=== PATIENT | male | born 2000 | race Caucasian/White ===

== ENCOUNTER 2020-06-12 12:12 | Emergency (ER) | payer MEDICAID ==
--- NOTE | 2020-06-12 12:51 | EDM.PDOC ---
ED HPI GENERAL MEDICAL PROBLEM - General Chief Complaint: Respiratory Problem Stated Complaint: SICK Time Seen by Provider: 06/12/20 12:14 - History of Present Illness INITIAL COMMENTS - FREE TEXT/NARRATIVE: History of present illness: [] Patient presents to the ED with his father for concerns over aspiration. About 11:00 he apparently vomited and father witnessed him aspirate. Since then he says he has been acting unusually and was concerned because in a previous episode of aspiration he was hospitalized for an extended period of time and extremely ill. Father is also concerned that he may have some constipation he has been having bowel movements but it has been diminished from his baseline and when he gets constipated he has increased episodes of vomiting. He is G-tube fed he is nonverbal he has fairly severe cerebral palsy prior history of intubation and tracheostomy after a prior aspiration incident. Review of systems: As per history of present illness and below otherwise all systems reviewed and negative. Past medical history: As per history of present illness and as reviewed below otherwise noncontributory. Surgical history: As per history of present illness and as reviewed below otherwise nonco ntributory. Social history: No reported history of drug or alcohol abuse. Family history: As per history of present illness and as reviewed below otherwise noncontributory. Physical exam: HEENT: Atraumatic, normocephalic, pupils reactive, negative for conjunctival pallor or scleral icterus, mucous membranes moist, throat clear, neck supple, nontender, trachea midline. Lungs: Rhonchi in the right lobe., breath sounds equal bilaterally, chest nontender. Heart: S1S2, regular, negative for clicks, rubs, or JVD. Tachycardic however the father states he is almost always in the 120s to 130s. At his baseline Abdomen: Soft, nondistended, nontender. Negative for masses or hepatosplenomegaly. Negative for costovertebral tenderness. Pelvis: Stable nontender. Genitourinary: Deferred. Rectal: Deferred. Extremities: Atraumatic, negative for cords or calf pain. Neurovascular unremarkable. Neuro: Awake, alert, oriented. Cranial nerves II through XII unremarkable. Cerebellum unremarkable. Motor and sensory unremarkable throughout. Exam nonfocal. Diagnostics: [] Therapeutics: [] Impression: Concerns for aspiration and constipation. [] Plan: We will start with a one-view portable chest and an upright abdomen. [] Definitive disposition and diagnosis as appropriate pending reevaluation and review of above. - Related Data Allergies Allergy/AdvReac Type Severity Reaction Status Date / Time No Known Allergies Allergy Verified 06/12/20 12:23 Home Meds: Home Meds PHENobarbitaL [PHENobarbital Elixir] 15 ml PO BID 06/12/20 [History] Past Medical History Neurological History: Reports: Cerebral Palsy - Infectious Disease History Infectious Disease History: Reports: MRSA - Past Surgical History Cardiovascular Surgical History: Reports: Other (See Below) Other Cardiovascular Surgeries/Procedures: Surgery on Aorta Respiratory Surgical History: Reports: Tracheostomy GI Surgical History: Reports: Other (See Below) Other GI Surgeries/Procedures: G Tube Social & Family History - Family History Family Medical History: Noncontributory - Tobacco Use Smoking Status *Q: Never Smoker - Recreational Drug Use Recreational Drug Use: No ED ROS GENERAL - Review of Systems Review Of Systems: See Below ED EXAM, GENERAL - Physical Exam Exam: See Below Course - Vital Signs Text/Narrative:: One-view portable chest read interpreted by me there is quite a bit of rotation however lung gaytan are clear visualized portions no acute cardiopulmonary pathology is evident. 1 view flatplate abdomen was obtained there is copious amounts of stool no signs of obstruction or free air. Considering the heart rate for this patient is always in the 120s and 30s will deem his vital signs to be stable his second set of oxygen saturations with a good plethysmography shows a 99% saturation. Patient is at his baseline behavioral pattern and mental status per father no respiratory distress I do not see any evidence of a large aspiration pneumonia or early signs of respiratory distress in this patient. It seems that the patient is quite constipated and we recommend MiraLAX be used frequently until clearing. They may use enemas as needed to facilitate clearing constipation. Is recommended that they return to the ED for fever or respiratory distress if it develops this afternoon or evening. Follow-up with primary care Last Recorded V/S: Last Vital Signs Temp 36.8 C 06/12/20 12:20 Pulse 136 H 06/12/20 13:41 Resp 25 H 06/12/20 13:41 BP 123/54 L 06/12/20 12:20 Pulse Ox 99 06/12/20 13:41 Departure - Departure Time of Disposition: 14:01 Disposition: Home, Self-Care 01 Condition: Good Clinical Impression: Constipation, Vomiting - Discharge Information *PRESCRIPTION DRUG MONITORING PROGRAM REVIEWED*: Not Applicable *COPY OF PRESCRIPTION DRUG MONITORING REPORT IN PATIENT TIM: Not Applicable Instructions: Chronic Constipation, Vomiting, Adult Referrals: Mikey Baron MD [Primary Care Provider] - Forms: ED Department Discharge Additional Instructions: The following information is given to patients seen in the emergency department who are being discharged to home. This information is to outline your options for follow-up care. We provide all patients seen in our emergency department with a follow-up referral. The need for follow-up, as well as the timing and circumstances, are variable depending upon the specifics of your emergency department visit. If you don't have a primary care physician on staff, we will provide you with a referral. We always advise you to contact your personal physician following an emergency department visit to inform them of the circumstance of the visit and for follow-up with them and/or the need for any referrals to a consulting specialist. The emergency department will also refer you to a specialist when appropriate. This referral assures that you have the opportunity for follow-up care with a specialist. All of these measure are taken in an effort to provide you with optimal care, which includes your follow-up. Under all circumstances we always encourage you to contact your private physician who remains a resource for coordinating your care. When calling for follow-up care, please make the office aware that this follow-up is from your recent emergency room visit. If for any reason you are refused follow-up, please contact the [facility] Emergency Department at and asked to speak to the emergency department charge nurse. Sepsis Event Note (ED) - Evaluation Sepsis Screening Result: No Definite Risk - Focused Exam Vital Signs: Vital Signs Temp Pulse Resp BP Pulse Ox 06/12/20 13:41 136 H 25 H 99 06/12/20 12:20 36.8 C 143 H 20 123/54 L 91 L
--- NOTE | 2020-06-12 13:45 | CR ---
Indication: Constipation Technique: Abdomen 1 view Comparison: None Findings/Impression: Bowel: Severe constipation pattern with diffuse stool filled distention of the colon. Percutaneous gastrostomy tube is present. Soft tissues: No sign of free air. No sign of soft tissue mass. No suspicious calcifications. Bones: Unremarkable for age. Dictated by Adrien Weber MD @ Jun 12 2020 1:44PM Signed by Dr. Adrien Weber @ Jun 12 2020 1:45PM
--- NOTE | 2020-06-12 13:47 | CR ---
Indication: Cough Technique: Chest 1 view Comparison: None. Findings/Impression: Cardiovascular and mediastinum: Heart size and vasculature are normal in caliber and appearance. Lungs and pleural space: Possible hilar interstitial infiltrates may be exaggerated by marked patient rotation. Bronchitis is otherwise a consideration. Remainder of the lungs and pleural spaces are clear. Repeat PA and lateral chest x-ray would be helpful for better assessment. Bones and soft tissues: No acute findings. Dictated by Adrien Weber MD @ Jun 12 2020 1:45PM Signed by Dr. Adrien Weber @ Jun 12 2020 1:47PM
== END 2020-06-12 14:20 | disposition home or self-care (01) ==
LOC: MW.ED 12:12
DX: K59.00 Constipation, unspecified (principal); G80.9 Cerebral palsy, unspecified; Z79.899 Other long term (current) drug therapy
CPT/HCPCS: 71045; 71045-26; 74018; 74018-26; 99283; 99284-25

== ENCOUNTER 2021-08-19 07:48 | Emergency (ER) | payer BC, MEDICAID ==
--- NOTE | 2021-08-19 08:12 | EDM.PDOC ---
ED HPI GENERAL MEDICAL PROBLEM - General Chief Complaint: Respiratory Problem Stated Complaint: COUGHING UP THICK MUCUS AND BUBBELS/PT IS NON VERB Time Seen by Provider: 08/19/21 07:52 - History of Present Illness INITIAL COMMENTS - FREE TEXT/NARRATIVE: 21-year-old male history of cerebral palsy aspiration pneumonia G-tube presents complaining of cough and shortness of breath. The cough started over the last day or so and then today it was significantly worse with an O2 sat in the 80s so the father was concerned and brought the patient in. No Covid vaccination. No fevers. No exacerbating relieving factors - Related Data Allergies Allergy/AdvReac Type Severity Reaction Status Date / Time No Known Allergies Allergy Verified 08/19/21 07:52 Home Meds: Home Meds PHENobarbitaL [PHENobarbital Elixir] 15 ml PO BID 06/12/20 [History] Amoxicillin/Potassium Clav [Augmentin 875-125 Tablet] 1 each PO BID #20 tablet 08/19/21 [Rx] Doxycycline [Vibramycin] 100 mg PO BID #20 tab 08/19/21 [Rx] Omeprazole [First-Omeprazole] 1 dose PO ASDIRECTED 08/19/21 [History] polyethylene glycoL 3350 [MiraLAX] 17 gm PO ASDIRECTED 08/19/21 [History] Past Medical History HEENT History: Reports: None Cardiovascular History: Reports: None Gastrointestinal History: Reports: None Genitourinary History: Reports: None Musculoskeletal History: Reports: None Neurological History: Reports: Cerebral Palsy Psychiatric History: Reports: None Endocrine/Metabolic History: Reports: None Hematologic History: Reports: None Immunologic History: Reports: None Oncologic (Cancer) History: Reports: None Dermatologic History: Reports: None - Infectious Disease History Infectious Disease History: Reports: MRSA, RSV - Past Surgical History Head Surgeries/Procedures: Reports: None Cardiovascular Surgical History: Reports: Other (See Below) Other Cardiovascular Surgeries/Procedures: Surgery on Aorta Respiratory Surgical History: Reports: Tracheostomy GI Surgical History: Reports: Colon, Other (See Below) Other GI Surgeries/Procedures: G Tube Male Surgical History: Reports: None Endocrine Surgical History: Reports: None Neurological Surgical History: Reports: None Musculoskeletal Surgical History: Reports: None Dermatological Surgical History: Reports: None Social & Family History - Family History Family Medical History: No Pertinent Family History - Tobacco Use Tobacco Use Status *Q: Never Tobacco User Second Hand Smoke Exposure: No - Caffeine Use Caffeine Use: Reports: None - Recreational Drug Use Recreational Drug Use: No ED ROS GENERAL - Review of Systems Review Of Systems: Unable To Obtain Reason Not Obtained: History limited secondary to patient baseline nonverbal ED EXAM, GENERAL - Physical Exam Exam: See Below Free Text/Narrative:: CONSTITUTIONAL: well appearing in no acute distress SKIN: Warm, dry, and intact without rash HENT: Normocephalic, atraumatic, PULMONARY: clear to ausculation bilaterally. No rales, rhonchi, wheezing CARDIOVASCULAR: regular rate, No murmur, rubs, or gallops GASTROINTESTINAL: soft, nondistended, nontender. G-tube in place site is clean and dry and intact NEUROLOGIC: Sensorimotor function grossly intact MUSCULOSKELETAL: no gross deformities, contractures PSYCHIATRIC: normal mood and affect #1 Interpretation Time: 08:25 EKG Interpretation Comments: 82, normal sinus rhythm (noisy baseline. In contrast to computer reading I do not think the patient appears to be in A. fib as there are p waves. perhaps some degree of sinus arryhthmia), inferior Q waves, nonspecific ST/T findings Course - Vital Signs Text/Narrative:: Differential diagnosis: Flu, Covid, pneumonia, bronchitis, reactive airway disease, other Patient presents as outlined above. Patient is well-appearing and nontoxic. O2 sat 1 waveform that is good is obtained is 96%. The x-ray is read by radiology is negative. I cannot exclude a diffuse infiltrate and patient will be covered for antibiotics. I do not hear any wheezing or prolonged expiratory phase or decreased air movement to suggest nebulization or steroids at this time. Otherwise supportive care with return precautions and PCP follow-up Urine equivocal for infection but the primary complaint is respiratory complaint. Urine will be sent off for culture and patient will be given antibiotics to cover for the possibility of pneumonia. O2 sat with good waveform consistently 96% Last Recorded V/S: Last Vital Signs Temp 36.4 C 08/19/21 07:53 Pulse 107 H 08/19/21 08:57 Resp 20 08/19/21 07:53 BP 82/62 L 08/19/21 08:57 Pulse Ox 94 L 08/19/21 08:57 - Orders/Labs/Meds Orders: Active Orders 24 hr Category Date Time Status B-TYPE NATRIURETIC PEPTIDE,BNP [CHEM] Stat Lab 08/19/21 09:07 Received CULTURE BLOOD [BC] Stat Lab 08/19/21 08:57 Received CULTURE BLOOD [BC] Stat Lab 08/19/21 09:07 Results CULTURE URINE [MREF] Stat Lab 08/19/21 09:28 Received Blood Culture x2 Reflex Set [OM.PC] Stat Oth 08/19/21 08:08 Ordered Labs: Laboratory Tests 08/19/21 08/19/21 08/19/21 Range/Units 08:30 09:07 09:07 WBC 9.05 (4.0-11.0) K/uL RBC 5.89 (4.50-5.90) M/uL Hgb 16.4 (13.0-17.0) g/dL Hct 48.3 (38.0-50.0) % MCV 82.0 (80.0-98.0) fL MCH 27.8 (27.0-32.0) pg MCHC 34.0 (31.0-37.0) g/dL RDW Std Deviation 39.9 (28.0-62.0) fl RDW Coeff of Lori 13 (11.0-15.0) % Plt Count 164 (150-400) K/uL Neut % (Auto) 74.3 (48.0-80.0) % Lymph % (Auto) 15.0 L (16.0-40.0) % Pine % (Auto) 9.1 (0.0-15.0) % Eos % (Auto) 1.3 (0.0-7.0) % Baso % (Auto) 0.3 (0.0-1.5) % Neut # (Auto) 6.7 H (1.4-5.7) K/uL Lymph # (Auto) 1.4 (0.6-2.4) K/uL Pine # (Auto) 0.8 (0.0-0.8) K/uL Eos # (Auto) 0.1 (0.0-0.7) K/uL Baso # (Auto) 0.0 (0.0-0.1) K/uL Nucleated RBC % 0.0 /100WBC Nucleated RBCs # 0 K/uL Sodium 141 (136-148) mmol/L Potassium 4.2 (3.5-5.1) mmol/L Chloride 104 (98-107) mmol/L Carbon Dioxide 31.7 (21.0-32.0) mmol/L BUN 18 (7.0-18.0) mg/dL Creatinine 0.7 L (0.8-1.3) mg/dL Est Cr Clr Drug Dosing 107.10 mL/min Estimated GFR (MDRD) > 60.0 ml/min Glucose 88 (74-106) mg/dL Lactic Acid (0.4-2.0) mmol/L Calcium 9.2 (8.5-10.1) mg/dL Total Bilirubin 0.1 L (0.2-1.0) mg/dL AST 28 (15-37) IU/L ALT 25 (14-63) IU/L Alkaline Phosphatase 143 H (46-116) U/L Troponin I < 0.050 (0.000-0.056) ng/mL Total Protein 8.1 (6.4-8.2) g/dL Albumin 3.7 (3.4-5.0) g/dL Globulin 4.4 H (2.6-4.0) g/dL Albumin/Globulin Ratio 0.8 L (0.9-1.6) Lipase 111 (73-393) U/L Urine Color Urine Appearance Urine pH (5.0-8.0) Ur Specific [place] (1.001-1.035) Urine Protein (NEGATIVE) mg/dL Urine Glucose (UA) (NEGATIVE) mg/dL Urine Ketones (NEGATIVE) mg/dL Urine Occult Blood (NEGATIVE) Urine Nitrite (NEGATIVE) Urine Bilirubin (NEGATIVE) Urine Urobilinogen (<2.0) EU/dL Ur Leukocyte Esterase (NEGATIVE) Urine RBC (0-2/HPF) Urine WBC (0-5/HPF) Ur Epithelial Cells (NONE-FEW) Urine Bacteria (NEGATIVE) Influenza Type A RNA NEGATIVE (NEGATIVE) RSV RNA (INAAT) NEGATIVE (NEGATIVE) Influenza Type B RNA NEGATIVE (NEGATIVE) SARS-CoV-2 RNA (MICKEY) NEGATIVE (NEGATIVE) 08/19/21 08/19/21 Range/Units 09:07 09:28 WBC (4.0-11.0) K/uL RBC (4.50-5.90) M/uL Hgb (13.0-17.0) g/dL Hct (38.0-50.0) % MCV (80.0-98.0) fL MCH (27.0-32.0) pg MCHC (31.0-37.0) g/dL RDW Std Deviation (28.0-62.0) fl RDW Coeff of Lori (11.0-15.0) % Plt Count (150-400) K/uL Neut % (Auto) (48.0-80.0) % Lymph % (Auto) (16.0-40.0) % Pine % (Auto) (0.0-15.0) % Eos % (Auto) (0.0-7.0) % Baso % (Auto) (0.0-1.5) % Neut # (Auto) (1.4-5.7) K/uL Lymph # (Auto) (0.6-2.4) K/uL Pine # (Auto) (0.0-0.8) K/uL Eos # (Auto) (0.0-0.7) K/uL Baso # (Auto) (0.0-0.1) K/uL Nucleated RBC % /100WBC Nucleated RBCs # K/uL Sodium (136-148) mmol/L Potassium (3.5-5.1) mmol/L Chloride (98-107) mmol/L Carbon Dioxide (21.0-32.0) mmol/L BUN (7.0-18.0) mg/dL Creatinine (0.8-1.3) mg/dL Est Cr Clr Drug Dosing mL/min Estimated GFR (MDRD) ml/min Glucose (74-106) mg/dL Lactic Acid 1.7 (0.4-2.0) mmol/L Calcium (8.5-10.1) mg/dL Total Bilirubin (0.2-1.0) mg/dL AST (15-37) IU/L ALT (14-63) IU/L Alkaline Phosphatase (46-116) U/L Troponin I (0.000-0.056) ng/mL Total Protein (6.4-8.2) g/dL Albumin (3.4-5.0) g/dL Globulin (2.6-4.0) g/dL Albumin/Globulin Ratio (0.9-1.6) Lipase (73-393) U/L Urine Color YELLOW Urine Appearance CLOUDY Urine pH 8.5 H (5.0-8.0) Ur Specific [place] 1.010 (1.001-1.035) Urine Protein 30 H (NEGATIVE) mg/dL Urine Glucose (UA) NEGATIVE (NEGATIVE) mg/dL Urine Ketones NEGATIVE (NEGATIVE) mg/dL Urine Occult Blood NEGATIVE (NEGATIVE) Urine Nitrite NEGATIVE (NEGATIVE) Urine Bilirubin NEGATIVE (NEGATIVE) Urine Urobilinogen 0.2 (<2.0) EU/dL Ur Leukocyte Esterase MODERATE H (NEGATIVE) Urine RBC 0-2 (0-2/HPF) Urine WBC TO NUMEROU (0-5/HPF) Ur Epithelial Cells RARE (NONE-FEW) Urine Bacteria 1+ H (NEGATIVE) Influenza Type A RNA (NEGATIVE) RSV RNA (INAAT) (NEGATIVE) Influenza Type B RNA (NEGATIVE) SARS-CoV-2 RNA (MICKEY) (NEGATIVE) Departure - Departure Time of Disposition: 11:00 Disposition: Home, Self-Care 01 Condition: Good Clinical Impression: Pneumonia - Discharge Information Instructions: Community-Acquired Pneumonia, Adult, [id number] Referrals: PCP,None [Ordering Only Provider] - Forms: ED Department Discharge Additional Instructions: I cannot exclude an underlying pneumonia. As such take antibiotics as prescribed. Return for any change or worsening condition or significant shortness of breath. Follow-up with primary care doctor in a couple of days for reevaluation. The following information is given to patients seen in the emergency department who are being discharged to home. This information is to outline your options for follow-up care. We provide all patients seen in our emergency department with a follow-up referral. The need for follow-up, as well as the timing and circumstances, are variable depending upon the specifics of your emergency department visit. If you don't have a primary care physician on staff, we will provide you with a referral. We always advise you to contact your personal physician following an emergency department visit to inform them of the circumstance of the visit and for follow-up with them and/or the need for any referrals to a consulting specialist. The emergency department will also refer you to a specialist when appropriate. This referral assures that you have the opportunity for follow-up care with a specialist. All of these measure are taken in an effort to provide you with optimal care, which includes your follow-up. Primary care clinics in the area: [facility] [address] [place] [address] [facility] [address] [place] [address] Under all circumstances we always encourage you to contact your private physician who remains a resource for coordinating your care. When calling for follow-up care, please make the office aware that this follow-up is from your recent emergency room visit. If for any reason you are refused follow-up, please contact the [facility] Emergency Department at and asked to speak to the emergency department charge nurse. Sepsis Event Note (ED) - Evaluation Sepsis Screening Result: No Definite Risk - Focused Exam Vital Signs: Vital Signs Temp Pulse Resp BP Pulse Ox 08/19/21 08:57 107 H 82/62 L 94 L 08/19/21 07:53 36.4 C 97 20 101/66 94 L - My Orders Last 24 Hours: My Active Orders 08/19/21 08:08 Blood Culture x2 Reflex Set [OM.PC] Stat 08/19/21 08:57 CULTURE BLOOD [BC] Stat 08/19/21 09:07 B-TYPE NATRIURETIC PEPTIDE,BNP [CHEM] Stat CULTURE BLOOD [BC] Stat 08/19/21 09:28 CULTURE URINE [MREF] Stat - Assessment/Plan Last 24 Hours: My Active Orders 08/19/21 08:08 Blood Culture x2 Reflex Set [OM.PC] Stat 08/19/21 08:57 CULTURE BLOOD [BC] Stat 08/19/21 09:07 B-TYPE NATRIURETIC PEPTIDE,BNP [CHEM] Stat CULTURE BLOOD [BC] Stat 08/19/21 09:28 CULTURE URINE [MREF] Stat
--- NOTE | 2021-08-19 09:05 | CR ---
Indication: Chest pain, wheezing Comparison: Single view chest June 12, 2020 Technique: Single AP view chest Findings: There is hyperinflation and chronic interstitial change. There is mild interstitial prominence without definite dense consolidation or pneumothorax. Exam is mildly limited due to patient positioning. Stable cardiac silhouette. The bony thorax is grossly intact. Impression: Mildly limited exam due to patient positioning. Likely chronic interstitial changes with mild interstitial prominence which may represent minimal pulmonary vascular congestion and/or bronchitis changes. No obvious dense consolidation is appreciated. Dictated by Duncan Hernandez MD @ 08/19/2021 9:04:31 AM (Electronically Signed)
[2021-08-19 09:21] LABS: CORONAVIRUS COVID-19 NAA NEGATIVE (NEGATIVE); INFLUENZA A NAA NEGATIVE (NEGATIVE); INFLUENZA B NAA NEGATIVE (NEGATIVE); RESPIRATORY SYNCYTIAL VIR NAA NEGATIVE (NEGATIVE)
[2021-08-19 09:52] LABS: BLOOD UREA NITROGEN,BUN 18 mg/dL (7.0-18.0); CARBON DIOXIDE,CO2 31.7 mmol/L (21.0-32.0); CHLORIDE,CL 104 mmol/L (98-107); GLUCOSE RANDOM 88 mg/dL (74-106); LIPASE 111 U/L (73-393); POTASSIUM,K 4.2 mmol/L (3.5-5.1); SODIUM,NA 141 mmol/L (136-148)
== END 2021-08-19 11:36 | disposition home or self-care (01) ==
LOC: MW.ED 07:48
DX: J18.9 Pneumonia, unspecified organism (principal); Z79.899 Other long term (current) drug therapy; Z20.822 Contact with and (suspected) exposure to COVID-19
CPT/HCPCS: 0241U; 36415; 71045; 80053; 81001; 83605; 83690; 83880; 84484; 85025; 87040; 87086; 93005; 99285

== ENCOUNTER 2021-09-30 10:48 | Emergency (ER) | payer BC, MEDICAID | END 2021-09-30 12:31 | disposition home or self-care (01) | LOC: MW.ED 10:48 | DX: R09.89 Other specified symptoms and signs involving the circulatory and respiratory systems (principal); Z20.822 Contact with and (suspected) exposure to COVID-19 | CPT/HCPCS: 71045; 71045-26; 99283-25; U0002 ==

== ENCOUNTER 2021-10-01 19:14 | Emergency (ER) | payer BC, MEDICAID ==
[2021-10-01] MEDS ORDERED: Sodium Chloride 0.9% 1,000 ML IV ONE (19:39)
[2021-10-01 21:01] LABS: CORONAVIRUS COVID-19 NAA NEGATIVE (NEGATIVE); INFLUENZA A NAA NEGATIVE (NEGATIVE); INFLUENZA B NAA NEGATIVE (NEGATIVE)
[2021-10-01 21:25] LABS: BLOOD UREA NITROGEN,BUN 13 mg/dL (7.0-18.0); CARBON DIOXIDE,CO2 27.9 mmol/L (21.0-32.0); CHLORIDE,CL 102 mmol/L (98-107); GLUCOSE RANDOM 153 mg/dL (74-106); POTASSIUM,K 3.5 mmol/L (3.5-5.1); SODIUM,NA 138 mmol/L (136-148)
[2021-10-01] MEDS ORDERED: Piperacillin/Tazobactam 3.375 GM in Sodium Chloride 0.9% 50 ML IV ONE (21:46)
[2021-10-01] MEDS ORDERED: Midazolam 1 MG/ML 2 ML SDV IVPUSH ONE (23:31)
[2021-10-01] MEDS ORDERED: Midazolam 1 MG/ML 2 ML SDV ONE (23:33)
[2021-10-02] MEDS ORDERED: Iopamidol 755 MG/ML 500 ML Multipack Bottle IVPUSH STA (00:02)
[2021-10-02] MEDS ORDERED: PHENOBARBITAL SODIUM IV ONE (00:07)
[2021-10-02] MEDS ORDERED: SODIUM CHLORIDE 0.9% IV ONE (00:07)
[2021-10-02] MEDS ORDERED: PHENobarbital Sodium 130 MG/ML SDV ONE (00:21)
[2021-10-02] MEDS ORDERED: Sodium Chloride 0.9% 1,000 ML IV STA (01:32)
== END 2021-10-02 11:15 ==
LOC: MW.ED 19:14
DX: K56.41 Fecal impaction (principal); Z79.899 Other long term (current) drug therapy; Z20.822 Contact with and (suspected) exposure to COVID-19
CPT/HCPCS: 0240U; 36415; 70491; 71045; 71260; 74177; 80053; 83605; 83735; 85025; 85379; 85610; 85730; 86140; 87040; 93005; 96365; 96367; 96375; 99285; J2250; J2543; J2560; J7030; Q9967; 36410